=== PATIENT | female | born 1945 | race Hispanic/Latino ===

== ENCOUNTER 2017-10-18 19:06 | Emergency (ER) | payer MEDICARE ==
[2017-10-18] MEDS ORDERED: Acetaminophen 500 MG TAB ONE (19:48)
[2017-10-18] MEDS ORDERED: Ondansetron ODT 8 MG TAB ONE (19:48)
--- NOTE | 2017-10-25 15:30 | EKG ---
Test Reason : Blood Pressure : / mmHG Vent. Rate : 114 BPM Atrial Rate : 228 BPM P-R Int : 000 ms QRS Dur : 090 ms QT Int : 324 ms P-R-T Axes : 038 -63 021 degrees QTc Int : 446 ms Normal sinus rhythm Left axis deviation No ST-T changes Abnormal ECG Confirmed by MINI MAGALLON ([id number]), editorial writer BRENDA ABBOTT ([id number]) on 10/25/2017 3:29:38 PM Referred By: Confirmed By:MINI MAGALLON
== END 2017-10-18 20:55 | disposition home or self-care (01) ==
LOC: ERS 19:06
DX: J11.1 Influenza due to unidentified influenza virus with other respiratory manifestations (principal); I10 Essential (primary) hypertension; E03.9 Hypothyroidism, unspecified; F41.9 Anxiety disorder, unspecified
CPT/HCPCS: 87804; 93005; 96372

== ENCOUNTER 2018-04-25 01:12 | Observation (INO) | payer MEDICARE ==
[2018-04-25] MEDS ORDERED: Nitroglycerin 2% Ointment 1 INCH/1 GM Packet ONE ×2 (02:06→02:55)
[2018-04-25 02:13] LABS: #Basophils 0.1 thou/uL (0.0-0.2); #Eosinphils 0.2 thou/uL (0.0-0.7); #Lymphocytes 1.7 thou/uL (1.20-3.40); #Monocytes 0.4 thou/uL (0.11-0.59); #Neutrophils 5.2 thou/uL (1.40-6.50); %Basophils 1.1 % (0.0-1.0); %Eosinophils 2.2 % (0.0-10.0); %Lymphocytes 22.7 % (21.0-51.0); %Monocytes 5.3 % (0.0-10.0); %Neutrophils 68.8 % (42.0-75.0); Mean Corpuscular HGB CONC 34.8 g/dL (32.0-36.0); Mean Corpuscular Hemoglobin 34.5 pg (27.0-31.0); Mean Corpuscular Volume 99.1 fL (78.0-98.0); Mean Platelet Volume 6.1 fL (7.4-10.4); Platelet Count 211 thou/uL (130-400); Red Blood Cell (RBC) Count 4.05 mill/uL (4.20-5.40); White Blood Cell (WBC) Count 7.6 thou/uL (4.8-10.8)
[2018-04-25 02:33] LABS: ALT (SGPT) 20 U/L (8-55); AST (SGOT) 22 U/L (5-34); Albumin 4.5 g/dL (3.4-4.8); Alkaline Phosphatase 97 U/L (40-150); Anion Gap 15 mmol/L (10-20); BUN (Urea Nitrogen) 14 mg/dL (9.8-20.1); Bilirubin, Total 0.6 mg/dL (0.2-1.2); CK (CPK) 105 U/L (29-168); Calc. Creatinine Clearance 0 mL/min (70-130); Calcium 9.9 mg/dL (7.8-10.44); Carbon Dioxide 26 mmol/L (23-31); Chloride 99 mmol/L (98-107); Estimated GFR-MDRD 85; Globulin 3.1 g/dL (2.4-3.5); Glucose 145 mg/dL (83-110); Lipase 12 U/L (8-78); Potassium 3.2 mmol/L (3.5-5.1); Protein, Total 7.6 g/dL (6.0-8.3); Sodium 137 mmol/L (136-145)
[2018-04-25 02:37] LABS: CKMB 1.5 ng/mL (0-6.6); Troponin I Less than 0.010 ng/mL (< 0.028)
[2018-04-25] MEDS ORDERED: hydrALAZINE 20 MG/ML VIAL ONE (03:34)
[2018-04-25] MEDS ORDERED: Ondansetron ODT 4 MG TAB ONE (05:05)
[2018-04-25] MEDS ORDERED: Lorazepam 2 MG/ML VIAL ONE (05:05)
[2018-04-25 05:48] LABS: Troponin I Less than 0.010 ng/mL (< 0.028)
[2018-04-25] MEDS ORDERED: Acetaminophen 325 MG TAB PO PRN ×2 (06:58→07:40)
[2018-04-25] MEDS ORDERED: Calcium Carbonate 500 MG ChewTAB PO PRN (07:40)
[2018-04-25] MEDS ORDERED: Nitroglycerin 0.4 MG TAB (25 Tab Bottle) SL PRN (07:40)
[2018-04-25] MEDS ORDERED: Mag-Al 1200 mg/1200 mg/30 ML UDCUP PO PRN (07:40)
[2018-04-25] MEDS ORDERED: Senokot 8.6 MG TAB PO PRN (07:40)
[2018-04-25] MEDS ORDERED: Loratadine 10 MG TAB PO PRN (07:40)
[2018-04-25] MEDS ORDERED: cloNIDine 0.1 MG TAB PO PRN (07:40)
[2018-04-25] MEDS ORDERED: Ondansetron HCl/PF 4 MG/2 ML Vial IVP PRN (07:40)
[2018-04-25] MEDS ORDERED: Benzonatate 100 MG CAP PO PRN (07:40)
[2018-04-25] MEDS ORDERED: Bisacodyl 5 MG TAB PO PRN (07:40)
[2018-04-25] MEDS ORDERED: Diabetic Tussin 200 MG/10 ML UDCUP PO PRN (07:40)
[2018-04-25] MEDS ORDERED: hydrALAZINE 20 MG/ML VIAL SLOW IVP PRN (07:40)
[2018-04-25] MEDS ORDERED: Ondansetron ODT 4 MG TAB PO PRN (07:40)
[2018-04-25] MEDS ORDERED: traMADol HCl 50 MG TAB PO PRN (07:40)
[2018-04-25 07:58] LABS: Cardiac Risk 3.9 (Less than 4.5)
[2018-04-25 08:02] VITALS: BMI 33.1
[2018-04-25 08:39] LABS: Troponin I Less than 0.010 ng/mL (< 0.028)
[2018-04-25] MEDS: Amlodipine 5 MG TAB PO SCH ×2 (08:47→09:06)
[2018-04-25] MEDS: Losartan 25 MG TAB PO SCH ×2 (08:47→09:06)
[2018-04-25] MEDS ORDERED: Aspirin 325 MG TAB PO SCH (09:00)
--- NOTE | 2018-04-25 09:23 | RAD ---
FRONTAL VIEW CHEST: COMPARISON: 07/09/15. INDICATION: Chest pain. FINDINGS: Lungs are clear. No free air beneath the hemidiaphragms. Cardiac silhouette is limited by portable technique. Chest is otherwise similar. IMPRESSION: No focal consolidation. POS: [facility]
--- NOTE | 2018-04-25 09:30 | ULT ---
GALLBLADDER ULTRASOUND: HISTORY: Chest and abdominal pain. COMPARISON: None. TECHNIQUE: Utilizing a multihertz transducer, sonographic imaging of the right upper quadrant was performed in t he longitudinal and transverse plane. FINDINGS: There is increased echogenicity of the visualized pancreatic parenchyma. The entire pancreas is not assessed due to bowel gas. There is increased echogenicity of the liver which may be due to hepatic steatosis or hepatocellular disease. Subsequent evaluation for hepatic masses and intrahepatic bilia ry dilatation is limited. Common bile duct diameter is 0.7 cm. Gallbladder is surgically absent. The right kidney has an overall normal cortical echotexture. No hydronephrosis. The right kidney me asures 4.4 x 10.8 x 5.3 cm. IMPRESSION: Increased echogenicity of the liver which may be due to hepatic steatosis or hepatocellular. POS: [facility]
[2018-04-25] MEDS ORDERED: Regadenoson 0.4 MG/5 ML SYRINGE ONE (11:08)
[2018-04-25] MEDS ORDERED: Lorazepam 2 MG/ML VIAL SLOW IVP SCH (11:45)
--- NOTE | 2018-04-25 15:18 | NM ---
NUCLEAR MEDICINE MYOCARDIAL PERFUSION EVALUATION: CLINICAL HISTORY: Chest pain, 72-year-old female. FINDINGS: Stress imaging of the left ventricular gonzalez performed subsequent to IV administration of 27.6 mCi te chnetium 99m sestamibi IV. There are no significant defects of the left ventricular gonzalez. Gated im aging reveals wall motion and contractility with a calculated LVEF greater than 70%. IMPRESSION: 1. No scintigraphic evidence by stress imaging of significant ischemia or scar. 2. Normal left ventricular systolic function. POS: [facility]
--- NOTE | 2018-04-25 15:21 | HP ---
PRIMARY CARE PHYSICIAN: Violetta An M.D. PRIMARY REED MAKER: Chase Maxwell M.D. CHIEF COMPLAINT: Chest pain. HISTORY OF PRESENTING ILLNESS: Ms. Haddad is a 72-year-old female with past medical history of hypertension and hypothyroidism who presented to the ER with the above-mentioned complaint. Hist ory is mainly obtained by the patient with the help of the family assistant on the phone. Ms. Haddad report that yesterday she had a significant amount of chest palpitations and sharp tight c hest pain going down her left arm associated with shortness of breath. She took 2 doses of aspirin y morning. Her symptoms did not go away. She also had "rolling pain in her abdomen with cons tipation." She denies any nausea, diaphoresis, vomiting, dizziness. She presented to the ER with th wilder symptoms. Upon presentation, she was hemodynamically stable with blood pressure 141/97, pulse 87, saturating 99 % on room air. She underwent general evaluation including 12-lead EKG, which showed left anterior fa scicular block without any acute ST or T-wave changes. Chest x-ray was negative for any infiltrate. She was given Ativan, Zofran hydralazine, transdermal nitroglycerin, sodium chloride and normal sali ne and is now being admitted to rule out acute coronary syndrome. Because of her complaints of abdom inal pain as well, she underwent an abdominal ultrasound which is rather unremarkable. The patient does report that she has seen Dr. Maxwell in the past and actually underwent a treadmil l stress test earlier this year which was reportedly negative. I do not have the results available a t this time. PAST MEDICAL HISTORY: Hypertension and hypothyroidism. PAST SURGICAL HISTORY: Tubal ligation and cholecystectomy. PSYCHIATRIC HISTORY: Anxiety. SOCIAL HISTORY: She is and lives with her family. No history of drug, tobacco or alcohol ab use. FAMILY HISTORY: Significant for heart attack in her father who passed way from it. ALLERGIES: No known medication allergies. CURRENT MEDICATIONS: Levothyroxine 125 mcg daily, hydrochlorothiazide 25 mg daily, losartan 100 mg d aily, clonidine 0.1 mg daily, amlodipine 5 mg daily, alprazolam 0.25 mg b.i.d. p.r.n., albuterol inha ler as needed. REVIEW OF SYSTEMS: The following complete review of systems was negative, unless otherwise mentioned in the HPI or below: Constitutional: Weight loss or gain, ability to conduct usual activities. Skin: Rash, itching. Eyes: Double vision, pain. ENT/Mouth: Nose bleeding, neck stiffness, pain, tenderness. Cardiovascular: Palpitations, dyspnea on exertion, orthopnea. Respiratory: Shortness of breath, wheezing, cough, hemoptysis, fever or night sweats. Gastrointestinal: Poor appetite, abdominal pain, heartburn, nausea, vomiting, constipation, or diarr hea. Genitourinary: Urgency, frequency, dysuria, nocturia. Musculoskeletal: Pain, swelling. Neurologic/Psychiatric: Anxiety, depression. Allergy/Immunologic: Skin rash, bleeding tendency. Twelve point review of systems is done, it is done negative except for those mentioned in the history and physical. The patient is currently symptom free. LABORATORY DATA AND IMAGING DATA: CBC is unremarkable. Serum chemistry is unremarkable except for p otassium low at 3.2. Cardiac enzymes negative x3. Lipid panel within normal limits. Lipase normal and BNP normal. Chest x-ray by my review has no evidence of pulmonary edema or infiltrate. A 12-rodger d EKG is negative for any changes in ST segments or T waves, normal sinus rhythm. PHYSICAL EXAMINATION: VITAL SIGNS: Most recent vital signs, temperature 98.5, pulse of 70, respirations 20, saturating 93% on room air, blood pressure 115/54. GENERAL: No acute distress, awake, alert, oriented x3. HEENT: Mucous membrane is moist and pink. No oropharyngeal exudate or erythema. Head is normocepha lic, atraumatic. Pupils are equal, reactive to light and accommodation. Extraocular movement intact . NECK: Supple without any lymphadenopathy, JVD or bruit. CHEST: Clear to auscultation without any wheezing, rales or rhonchi. CARDIOVASCULAR: Rhythm is regular without any murmur, rubs or gallops. ABDOMEN: Soft, nontender, and nondistended with positive bowel sounds. EXTREMITIES: Free of any cyanosis, clubbing, or edema. NEUROLOGIC: Examination is nonfocal. PSYCHIATRIC: Normal affect. SKIN: Free of any rashes or bruises. IMPRESSION AND PLAN: 1. Chest pain. The patient's abdominal symptoms and related chest pain suggests that she most likel y has gastroesophageal reflux disease. Abdominal ultrasound is negative. She had a stress test that was supposedly negative earlier this year. I do not have access to that report and the patient's fa sterling is requesting that the test will be repeated at this time. I have assured them that most likely she does not have ACS, but given multiple risk factors, we will go ahead and obtain a pharmacologica l stress test for this patient. Continue home medications and add full dose aspirin for now. Monito r hemodynamics. If her stress test is negative, she can be discharged home. 2. Hypertension. The patient's blood pressure is on the lower side for me at this time. She is act ually on very big doses of antihypertensives. If she continues to show trend for low blood pressure, I would adjust her Cozaar instead of 100 mg to 25 mg with follow up with outpatient PCP. 3. Hypothyroidism: Resume Synthroid. 4. Code status: FULL CODE. Discussed with the patient. DISPOSITION: Ms. Haddad is being admitted to rule out acute coronary syndrome at this time. She is currently hemodynamically stable. Further management will depend upon her clinical course. She is c urrently on observation status.
[2018-04-25 16:06] VITALS: BP 116/56; TEMP 98
--- NOTE | 2018-04-26 09:46 | DIS ---
DATE OF ADMISSION: 04/25/2018 DATE OF DISCHARGE: 04/25/2018 CONDITION AT THE TIME OF DISCHARGE: Stable. DISCHARGE DIAGNOSES: Chest pain, atypical, noncardiac, likely gastroesophageal reflux disease. PRIMARY CARE PHYSICIAN: Dr. Violetta An. HOSPITAL COURSE: Please see admission history and physical dictated by myself at the time of admissi on a few hours ago. The patient presented with chest pain. She also had some abdominal pain. She u nderwent an abdominal ultrasound, which is unremarkable. She underwent a nuclear medicine stress olamide t, which was also unremarkable. Cardiac enzymes were trended and were negative x3 for troponin, lipi d panel was checked, which was unremarkable. The patient was hemodynamically stable throughout the h ospitalization. Her blood pressure was on the lower side, ranging from systolic 102-116 and diastoli c ranging from 54-67. Her losartan at this time is reduced from 100 mg daily to 50 mg daily. The ava chapin is instructed to follow up with primary care physician with the results of home blood pressure monitoring. She also has appointment with her neuro urologist, Dr. Maxwell, who has worked her up in the past with negative results as well. Her symptoms are also contributed by high level of anxiety. She was seen and examined prior to discharge. Please see history and physical for physical examinati on and [id number] encounter.
== END 2018-04-25 18:00 | disposition home or self-care (01) ==
LOC: ERS 01:12 → ERHOLD 03:16 → 2SW 03:45
PROVIDERS: ADMIT Hospitalist; ATTEND Hospitalist
DX: R07.89 Other chest pain (principal); I10 Essential (primary) hypertension; E03.9 Hypothyroidism, unspecified; Z79.899 Other long term (current) drug therapy
CPT/HCPCS: 71045; 76705; 78452; 80053; 80061; 82550; 82553; 82962; 83690; 83880; 84484 ×2; 85025; 93005; 93017; 96374; 96375; 96376; 99285; A9500; G0378 ×2; 36415; 36416; J0360; J2060; J2785; Q0162

== ENCOUNTER 2018-04-26 21:49 | Emergency (ER) | payer MEDICARE ==
[2018-04-26] MEDS ORDERED: cloNIDine 0.1 MG TAB ONE (22:06)
[2018-04-26] MEDS ORDERED: Diazepam 5 MG TAB ONE (22:18)
== END 2018-04-26 23:04 | disposition home or self-care (01) ==
LOC: ERS 21:49
DX: I10 Essential (primary) hypertension (principal); E03.9 Hypothyroidism, unspecified; F41.9 Anxiety disorder, unspecified; Z79.899 Other long term (current) drug therapy
CPT/HCPCS: 93005

== ENCOUNTER 2018-04-27 14:26 | Outpatient (CLI) | payer MEDICARE | END 2018-04-27 14:27 | disposition home or self-care (01) | LOC: BICRAD 14:26 | PROVIDERS: ATTEND Family Medicine | DX: M79.672 Pain in left foot (principal) ==

== ENCOUNTER 2018-08-16 00:10 | Emergency (ER) | payer MEDICARE ==
[2018-08-16 01:23] LABS: #Basophils 0.1 thou/uL (0.0-0.2); #Eosinphils 0.1 thou/uL (0.0-0.7); #Lymphocytes 2.2 thou/uL (1.20-3.40); #Monocytes 0.5 thou/uL (0.11-0.59); #Neutrophils 5.7 thou/uL (1.40-6.50); %Basophils 0.8 % (0.0-1.0); %Eosinophils 1.4 % (0.0-10.0); %Lymphocytes 25.5 % (21.0-51.0); %Monocytes 5.6 % (0.0-10.0); %Neutrophils 66.7 % (42.0-75.0); Hemoglobin 14.5 g/dL (12.0-16.0); Mean Corpuscular HGB CONC 33.3 g/dL (32.0-36.0); Mean Corpuscular Volume 99.3 fL (78.0-98.0); Mean Platelet Volume 6.1 fL (7.4-10.4); Platelet Count 236 thou/uL (130-400); RBC Distribution Width 13.1 % (11.5-14.5); White Blood Cell (WBC) Count 8.6 thou/uL (4.8-10.8)
[2018-08-16 01:45] LABS: ALT (SGPT) 23 U/L (8-55); AST (SGOT) 21 U/L (5-34); Albumin 4.5 g/dL (3.4-4.8); Alkaline Phosphatase 107 U/L (40-150); Anion Gap 16 mmol/L (10-20); BUN (Urea Nitrogen) 12 mg/dL (9.8-20.1); Bilirubin, Total 0.4 mg/dL (0.2-1.2); Calc. Creatinine Clearance 0 mL/min (70-130); Calcium 9.7 mg/dL (7.8-10.44); Carbon Dioxide 24 mmol/L (23-31); Chloride 103 mmol/L (98-107); Estimated GFR-MDRD 78; Globulin 3.6 g/dL (2.4-3.5); Glucose 117 mg/dL (83-110); Potassium 3.6 mmol/L (3.5-5.1); Protein, Total 8.1 g/dL (6.0-8.3); Sodium 139 mmol/L (136-145)
--- NOTE | 2018-08-22 22:13 | EKG ---
Test Reason : BEBETO B/P Blood Pressure : / mmHG Vent. Rate : 077 BPM Atrial Rate : 077 BPM P-R Int : 160 ms QRS Dur : 088 ms QT Int : 404 ms P-R-T Axes : 023 -61 008 degrees QTc Int : 457 ms Normal sinus rhythm Pulmonary disease pattern Left anterior fascicular block Abnormal ECG Confirmed by GRACE MULLEN, CELESTE ([id number]), state editor ABRAHAN BROWN ([id number]) on 08/22/2018 10:12:50 PM Referred By: Confirmed By:CELESTE EDWARDS MD
== END 2018-08-16 01:51 | disposition home or self-care (01) ==
LOC: ERS 00:10
DX: I10 Essential (primary) hypertension (principal); E03.9 Hypothyroidism, unspecified; E11.9 Type 2 diabetes mellitus without complications; F41.9 Anxiety disorder, unspecified; Z79.82 Long term (current) use of aspirin; Z79.899 Other long term (current) drug therapy
CPT/HCPCS: 36415; 80053; 85025; 93005

== ENCOUNTER 2018-09-03 15:31 | Outpatient (CLI) | payer MEDICARE | END 2018-09-03 15:32 | disposition home or self-care (01) | LOC: BICMAMMO 15:31 | PROVIDERS: ATTEND Family Medicine | DX: Z12.31 Encounter for screening mammogram for malignant neoplasm of breast (principal) | CPT/HCPCS: 77063; 77067 ==

== ENCOUNTER 2018-10-08 14:45 | Outpatient (CLI) | payer MEDICARE ==
[2018-10-08 15:47] LABS: Estimated GFR-MDRD - POC Greater than 90
--- NOTE | 2018-10-08 19:20 | CT ---
NECK CT WITH IV CONTRAST: 10/08/18 COMPARISON: None. HISTORY: Cervical radiculopathy, mass behind the left ear. TECHNIQUE: Axial CT imaging obtained at 3 mm intervals from skull base through lung apices with IV contrast. Cor onal and sagittal reformatted imaging obtained. FINDINGS: The visualized lung apices are unremarkable. The imaged brain parenchyma appears grossly unremarkable. There is atherosclerotic calcification of t he distal left vertebral artery. There are two small nodular densities within the parotid gland on the left, measuring up to 6 mm, sug gesting small intraparotid nodes. The larger such finding is in the area of palpable concern. There i s a probable intraparotid node anteriorly on the right as well on axial image 19. The submandibular g land appear grossly unremarkable. The level of the tonsillar pillars, the epiglottis and pre-epiglott ic fat, the hyoid bone, the thyroid cartilage, and the cricoid cartilage appear grossly unremarkable. the thyroid gland appears markedly hypoplastic. The imaged paranasal sinuses and mastoid air cells appear grossly unremarkable. Imaged portions of th e orbits and globes appear unremarkable as well. There is a mildly enlarged superior mediastinal lymph node superior to the proximal left common carot id artery measuring 1.3 cm in short axis dimension. There is a 9 mm node to the right of the esophagu s at the thoracic inlet on image 61. There is an enlarged lymph node lateral to the trachea on the ri ght on axial image 67 measuring 1.4 cm in short axis dimension. No neck lymphadenopathy is noted. Osseous structures demonstrate no worrisome lytic or blastic bone l esions. IMPRESSION: 1. Subcentimeter nodular densities within the parotid gland bilaterally, left greater than right suggesting intraparotid nodes. One such lesion is the palpable abnormality and measures 6 mm in shor t axis dimension. 2. Nonspecific mild lymphadenopathy within the superior mediastinum. Significance of this mild m ediastinal lymphadenopathy is uncertain on this examination. Dedicated CT examination of the chest ma y be beneficial for full assessment of potential lymphadenopathy within the chest. Findings could be associated with inflammatory, infectious or neoplastic process. POS: [facility]
== END 2018-10-08 14:46 | disposition home or self-care (01) ==
LOC: BICCT 14:45
PROVIDERS: ATTEND Otolaryngology Plastic Surgery within the Head & Neck
DX: R59.0 Localized enlarged lymph nodes (principal); K11.8 Other diseases of salivary glands
CPT/HCPCS: 70491; 82565

== ENCOUNTER 2018-10-16 13:38 | Outpatient (CLI) | payer MEDICARE ==
--- NOTE | 2018-10-16 17:02 | CT ---
CT THORAX WITH IV CONTRAST: 10/16/18 HISTORY: Chest mass seen on CT of the neck on 10/08/18. This is followup examination. History of cervical lymp hadenopathy. COMPARISON: CT neck on 10/08/[address] abdomen and pelvis on 01/06/17. FINDINGS: Again noted are mildly enlarged superior mediastinal lymph nodes with a right paratracheal lymph node measuring 1.2 cm, previously measuring 1.4 cm in short axis dimension. A more superior mediastinal l ymph node seen adjacent to the proximal left common carotid artery is again seen and measures 1.2 cm in short axis dimension. There is also subcarinal lymph node measuring 1.2 cm in short axis dimension . The other paratracheal lymph nodes are seen which are mildly prominent as well and were also seen o n the CT scan of the neck and not significantly changed. No significant hilar lymphadenopathy is appr eciated. There are calcifications of the mitral valve annulus. Vascular calcifications are seen in the coronar y arteries as well as involving the thoracic aorta. There are peripheral linear densities at the lateral right lung base, also seen on prior CT examinati on. Similar findings are seen within the lingula. These findings were also present on CT abdomen in 2 013 and likely related to mild chronic lung changes and scarring. A tiny less than 4 mm pulmonary nodule seen at the lateral right lung base too small to characterize. No additional pulmonary nodule or mass is seen in the lungs. There is no pleural effusion identified . There is incomplete imaging of the a superior pole right renal lesion which was not seen on prior CT exam in 2017. This hypodense area measures 1.7 cm in greatest dimension but is incompletely imaged or characterized on this exam. An additional very tiny subcentimeter to small to characterize hypodense lesion is also seen in the mid portion of the right kidney. Post cholecystectomy changes are again s een. Degenerative changes are seen in the thoracic spine. IMPRESSION: 1. Nonspecific mild mediastinal lymphadenopathy of uncertain etiology and unchanged from the CT scan neck examination on 10/08/18. 2. Mild chronic lung changes at each lung base with very tiny too small to characterize less mitchel n 4 mm nodular density at the right lung base in addition to calcified granuloma at the right lung ba se. 3. Incomplete imaging of hypodense lesions in the right kidney statistically likely representing cysts, although the larger cystic structure was not seen on exam in 2017. Followup ultrasound examin ation may be helpful to ensure that this represents a cyst. 4. Cholecystectomy. POS: [facility]
== END 2018-10-16 13:39 | disposition home or self-care (01) ==
LOC: BICCT 13:38
PROVIDERS: ATTEND Otolaryngology Plastic Surgery within the Head & Neck
DX: R22.2 Localized swelling, mass and lump, trunk (principal); R59.0 Localized enlarged lymph nodes; J98.4 Other disorders of lung; J84.10 Pulmonary fibrosis, unspecified; N28.9 Disorder of kidney and ureter, unspecified; Z90.49 Acquired absence of other specified parts of digestive tract
CPT/HCPCS: 71260

== ENCOUNTER 2023-09-08 09:22 | Outpatient (CLI) | payer MEDICARE | END 2023-09-08 09:23 | disposition home or self-care (01) | LOC: RAD 09:22 | PROVIDERS: ATTEND Internal Medicine | DX: R06.00 Dyspnea, unspecified (principal) | CPT/HCPCS: 71046 ==